=== PATIENT | female | born 1995 | race Caucasian/White ===

== ENCOUNTER 2019-01-13 11:41 | Emergency (ER) | payer MEDICAID ==
[~2019-01-13] VITALS: Ht 160 cm; Wt 82.0 kg
[~2019-01-13 11:41] MED LIST: IBUP-1222 PO; OXYC-302 PO
[2019-01-13 11:47] VITALS: BP 118/88
== END 2019-01-13 14:25 | disposition home or self-care (01) ==
LOC: ED 14:15
DX: J20.9 Acute bronchitis, unspecified (principal); J02.9 Acute pharyngitis, unspecified
CPT/HCPCS: 71046; 87081; 87880; 99284

== ENCOUNTER 2019-11-27 14:32 | Emergency (ER) | payer MEDICAID ==
[~2019-11-27] VITALS: Ht 160 cm; Wt 83.4 kg
[2019-11-27 15:06] LABS: HCG UR SG 1.022 (1.003-1.030); MICROSCOPIC INDICATED
--- NOTE | 2019-11-27 15:10 | NUR ---
PT CAME IN CO OF RLQ PAIN. PT REPROTS NASEUA. URINE SENT. DR GARZA IS BEDSIDE. ACCOMPANIED BY MOTHER. CALL LIGHT WITHIN REACH
[2019-11-27 15:16] LABS: CULTURE INDICATED? YES
[2019-11-27] MEDS ORDERED: ONDANSETRON 2MG/ML, 2ML ONE (15:16)
[2019-11-27] MEDS ORDERED: MORPHINE SULFATE 4 MG/ML, 1ML ONE (15:17)
[2019-11-27] MEDS ORDERED: ONDANSETRON 2MG/ML, 2ML IVPush ONE (15:30)
[2019-11-27] MEDS ORDERED: MORPHINE SULFATE 4 MG/ML, 1ML IVPush PRN (15:30)
[2019-11-27 15:32] LABS: BASOPHILS # (AUTO) 0.01 x10^3/uL (0-0.1); BASOPHILS % (AUTO) 0 % (0-1); EOSINOPHILS # (AUTO) 0.14 x10^3/uL (0-0.4); EOSINOPHILS % (AUTO) 2 % (1-7); LYMPHOCYTES # (AUTO) 1.91 x10^3/uL (1-3.4); LYMPHOCYTES % (AUTO) 23 % (22-44); MD NO; MEAN CORPUSCULAR HEMOGLOBIN 30.1 pg (27.0-34.8); MEAN CORPUSCULAR HGB CONC 33.5 g/dL (32.4-35.8); MEAN CORPUSCULAR VOLUME 89.8 fL (80-100); MEAN PLATELET VOLUME 8.2 fL (7.4-10.4); MONOCYTES # (AUTO) 0.51 x10^3/uL (0.2-0.8); MONOCYTES % (AUTO) 6 % (2-9); NEUTROPHILS # (AUTO) 5.61 x10^3/uL (1.8-6.8); NEUTROPHILS % (AUTO) 69 % (42-75); PLATELET COUNT 262 x10^3/uL (130-400); RED BLOOD COUNT 5.02 x10^6/uL (3.82-5.3); RED CELL DISTRIBUTION WIDTH 13.4 % (9.6-15.2)
[2019-11-27 15:43] LABS: ALBUMIN 4.5 g/dL (3.4-5.0); ANION GAP 5 mmol/L (5-15); CALCIUM 9.9 mg/dL (8.5-10.1); CHLORIDE 107 mmol/L (98-107); CREATININE 0.66 mg/dL (0.55-1.02)
--- NOTE | 2019-11-27 16:01 | NUR ---
PT IN US
[2019-11-27] MEDS ORDERED: SODIUM CHLORIDE FLUSH 10ML SYR IVF ONE (16:30)
[2019-11-27 16:35] VITALS: BP 123/82
--- NOTE | 2019-11-27 16:35 | NUR ---
PT IN ROOM. IN HOSPITAL BED. AWAITING US RESULTS. NO NEEDS AT THIS TIME
== END 2019-11-27 17:24 | disposition home or self-care (01) ==
LOC: ED 15:18
DX: R10.31 Right lower quadrant pain (principal); N83.291 Other ovarian cyst, right side
CPT/HCPCS: 36415; 76830; 80048; 81001; 81025; 82040; 85025; 87086; 96374; 96375; 99284; J2270; J2405